=== PATIENT | female | born 1955 | race Hispanic/Latino ===

== ENCOUNTER 2019-04-26 17:40 | Emergency (ER) | payer BC, MEDICARE ==
[~2019-04-26] VITALS: Ht 160 cm; Wt 99.8 kg
--- OUTSIDE RECORDS SUMMARY | 2019-04-26 17:42 | XMS REPORT ---
Author Author [facility] Address Unknown Phone Unavailable Care Team Providers Care Pediatric Audiologist Name Role Phone Unavailable Unavailable Payers Payer Name Policy Type Policy Number Effective Date Expiration Date Problems This patient has no known problems. Allergies, Adverse Reactions, Alerts Allergy Name Allergy Type Status Severity Reaction(s) Onset Date Inactive Date Treating Clinician Comments lidocaine DA Active MO 2017-01-13 00:00:00 Medications This patient has no known medications.
== END 2019-04-26 21:00 | disposition left against medical advice (07) ==
LOC: ER 17:40
DX: M25.562 Pain in left knee (principal)

== ENCOUNTER → 2020-04-20 | Outpatient (CLI) | payer OTHER ==
[~2020-04-20] MED LIST: GADOBENATE DIMEGLUMINE 0 ML IV ONE; IOPAMIDOL 300 MG/ML 15ML VIAL IT ONE; LIDOCAINE HCL 1% LOCAL INJ 20 ML VIAL ONE
--- NOTE | 2020-04-20 13:07 | Diagnostic Imaging Report ---
Left shoulder arthrogram. History: Left shoulder pain after fall. No MRI requested due to presence of pacemaker. Screener Operator: Dr. Quick. Contrast: 10 mL of Isovue-300. Medication: 6 cc of 1% Lidocaine without epinephrine. EBL: < 1 ml. Specimen: None. Fluoro time: 0.3 min. Dose: 2.2 mGy (CHRISTY) Technique: After informed consent was obtained, the patient's left shoulder was prepped and draped in a sterile fashion. The skin was anesthetized with lidocaine. Using fluoroscopic guidance, a 22-gauge spinal needle was advanced into the left glenohumeral joint space. The contrast mixture was injected. The needle was removed and images were obtained in internal and external rotation. The patient tolerated procedure well without evidence of complication. Findings: Contrast fills the glenohumeral joint, with extravasation into the subacromial and subdeltoid bursa. IMPRESSION: Successful left shoulder arthrogram demonstrating full-thickness rotator cuff tear. Signed by: Momo Quick on 04/20/2020 1:04 PM
== END ==
LOC: DX 11:16
PROVIDERS: ATTEND Specialist
DX: M75.102 Unspecified rotator cuff tear or rupture of left shoulder, not specified as traumatic (principal)
CPT/HCPCS: 23350; 77002; J2001; Q9967

== ENCOUNTER 2020-04-21 09:45 | Outpatient (RCR) | payer OTHER | END 2020-04-22 | LOC: PT 09:45 | PROVIDERS: ATTEND Specialist | DX: M17.12 Unilateral primary osteoarthritis, left knee (principal); M25.561 Pain in right knee; M25.562 Pain in left knee; S83.281D Other tear of lateral meniscus, current injury, right knee, subsequent encounter ==

== ENCOUNTER 2020-05-19 10:00 | Outpatient (RCR) | payer OTHER | END 2020-05-22 | LOC: PT 10:00 | PROVIDERS: ATTEND Specialist | DX: M17.12 Unilateral primary osteoarthritis, left knee (principal); M25.562 Pain in left knee; M25.561 Pain in right knee | CPT/HCPCS: 97139 ==

== ENCOUNTER 2020-05-26 10:00 | Outpatient (RCR) | payer OTHER ==
[2020-06-05] MEDS ORDERED: LEXAPRO20 MG PO (14:24)
[2020-06-05] MEDS ORDERED: METFORMIN HCL500 M2 PO (14:24)
[2020-06-05] MEDS ORDERED: SIMVASTATIN40 MG PO (14:24)
[2020-06-05] MEDS ORDERED: LEVOTHYROXINE50 MCG PO (14:24)
[2020-06-05] MEDS ORDERED: ELIQUIS5 MG PO (14:25)
[2020-06-05] MEDS ORDERED: OMEPRAZOLE20 M2 PO (14:25)
[2020-06-05] MEDS ORDERED: DIGOXIN125 MCG PO (14:25)
[2020-06-05] MEDS ORDERED: SPIRONOLACTONE25 MG PO (14:25)
[2020-06-05] MEDS ORDERED: LYRICA75 MG PO (14:26)
[2020-06-05] MEDS ORDERED: TYLENOL EXTRA500 MG PO (14:26)
[2020-06-05] MEDS ORDERED: CARVEDILOL3.125 MG PO (14:26)
== END 2020-06-22 ==
LOC: PT 10:00
PROVIDERS: ATTEND Specialist
DX: M17.12 Unilateral primary osteoarthritis, left knee (principal); M25.561 Pain in right knee; M25.661 Stiffness of right knee, not elsewhere classified

== ENCOUNTER → 2020-06-07 | Day surgery (SDC) | payer OTHER ==
[2020-06-05 13:33] LABS: BASOPHILS % 0.5 % (0.0-1.0); EOSINOPHILS # (AUTO) 0.1 (0.0-0.4); EOSINOPHILS % 1.4 % (0.0-6.0); HEMATOCRIT 39.4 % (34.2-44.1); HEMOGLOBIN 12.8 g/dL (12.0-16.0); LYMPHOCYTES # (AUTO) 1.9 (1.0-3.2); LYMPHOCYTES % 24.5 % (18.0-39.1); MEAN CORPUSCULAR HGB CONC 32.5 g/dL (31-35); MEAN CORPUSCULAR VOLUME 92.3 fL (81-99); MONOCYTES # (AUTO) 0.5 (0.2-0.8); MONOCYTES % 6.4 % (4.4-11.3); NEUTROPHILS # (AUTO) 5.3 (2.1-6.9); NEUTROPHILS % 66.8 % (38.7-80.0); PLATELET COUNT 233 x10e3/uL (140-360); RED BLOOD COUNT 4.27 x10e6/uL (3.6-5.1); RED CELL DISTRIBUTION WIDTH 13.2 % (11.7-14.4)
[2020-06-05 13:47] LABS: ANION GAP 15.4 mmol/L (8-16); CALCIUM 9.1 mg/dL (8.4-10.2); CREATININE, SERUM 0.98 mg/dL (0.57-1.11); POTASSIUM 4.4 mmol/L (3.5-5.1)
[~2020-06-07] MED LIST changes: +BUPIVACAINE 0.5%/EPI 30 ML SDV INJ ONE; +CARVEDILOL3.125 MG PO; +CEFAZOLIN SOD 1 GM/NS 50ML 100 ML IV ONE; +DEXAMETHASONE SOD PHOS INJ 4 MG/ML VIAL ONE; +DIGOXIN125 MCG PO; +ELIQUIS5 MG PO; +FENTANYL CITRATE/PF 100MCG/2 ML INJ ONE; -GADOBENATE DIMEGLUMINE 0 ML IV ONE; +HYDROMORPHONE 1MG/1ML INJ ONE; -IOPAMIDOL 300 MG/ML 15ML VIAL IT ONE; +LABETALOL HCL 5 MG/ML 20ML VIAL ONE; +LEVOTHYROXINE50 MCG PO; +LEXAPRO20 MG PO; -LIDOCAINE HCL 1% LOCAL INJ 20 ML VIAL ONE; +LYRICA75 MG PO; +METFORMIN HCL500 M2 PO; +OMEPRAZOLE20 M2 PO; +ONDANSETRON HCL INJ 2MG/ML 2ML 2 MG/ML VIAL ONE; +PROPOFOL IV EMULSION 10 MG/ML 20 ML VIAL ONE; +SEVOFLURANE INHAL SOLN 250 ML PEN BTL ONE; +SIMVASTATIN40 MG PO; +SPIRONOLACTONE25 MG PO; +TYLENOL EXTRA500 MG PO
[2020-06-07 10:05] VITALS: BP 133/84
== END | disposition home or self-care (01) ==
LOC: OR 05:31
PROVIDERS: ATTEND Specialist
DX: S83.222A Peripheral tear of medial meniscus, current injury, left knee, initial encounter (principal); S83.262A Peripheral tear of lateral meniscus, current injury, left knee, initial encounter; M17.12 Unilateral primary osteoarthritis, left knee; S83.512A Sprain of anterior cruciate ligament of left knee, initial encounter; M67.52 Plica syndrome, left knee; M22.42 Chondromalacia patellae, left knee; S46.092A Other injury of muscle(s) and tendon(s) of the rotator cuff of left shoulder, initial encounter; E11.9 Type 2 diabetes mellitus without complications; I49.5 Sick sinus syndrome; I11.0 Hypertensive heart disease with heart failure; I50.9 Heart failure, unspecified; K21.9 Gastro-esophageal reflux disease without esophagitis; N39.0 Urinary tract infection, site not specified; E66.01 Morbid (severe) obesity due to excess calories; E05.90 Thyrotoxicosis, unspecified without thyrotoxic crisis or storm; X58.XXXA Exposure to other specified factors, initial encounter; Z01.810 Encounter for preprocedural cardiovascular examination; Z01.812 Encounter for preprocedural laboratory examination; Z01.818 Encounter for other preprocedural examination; Z20.828 Contact with and (suspected) exposure to other viral communicable diseases; Z79.02 Long term (current) use of antithrombotics/antiplatelets; Z79.84 Long term (current) use of oral hypoglycemic drugs; Z68.43 Body mass index [BMI] 50.0-59.9, adult; Z95.0 Presence of cardiac pacemaker
CPT/HCPCS: 36415; 71046; 80048; 82948; 85025; 93005; J0690; J1100; J1170; J2405; J3010; U0002

== ENCOUNTER 2020-07-21 10:50 | Outpatient (RCR) | payer MEDICARE, OTHER ==
[~2020-07-21 10:50] MED LIST changes: -BUPIVACAINE 0.5%/EPI 30 ML SDV INJ ONE; -CEFAZOLIN SOD 1 GM/NS 50ML 100 ML IV ONE; -DEXAMETHASONE SOD PHOS INJ 4 MG/ML VIAL ONE; -FENTANYL CITRATE/PF 100MCG/2 ML INJ ONE; -HYDROMORPHONE 1MG/1ML INJ ONE; -LABETALOL HCL 5 MG/ML 20ML VIAL ONE; -ONDANSETRON HCL INJ 2MG/ML 2ML 2 MG/ML VIAL ONE; -PROPOFOL IV EMULSION 10 MG/ML 20 ML VIAL ONE; -SEVOFLURANE INHAL SOLN 250 ML PEN BTL ONE
== END 2020-07-23 ==
LOC: PT 10:50
PROVIDERS: ATTEND Specialist
DX: M25.562 Pain in left knee (principal)

== ENCOUNTER 2020-08-18 13:00 | Outpatient (RCR) | payer OTHER | END 2020-08-20 | LOC: PT 13:00 | PROVIDERS: ATTEND Specialist | DX: M25.562 Pain in left knee (principal) ==

== ENCOUNTER 2020-08-25 13:00 | Outpatient (RCR) | payer OTHER | END 2020-09-20 | LOC: PT 13:00 | PROVIDERS: ATTEND Specialist | DX: M25.562 Pain in left knee (principal) ==

== ENCOUNTER 2021-12-06 15:12 | Emergency (ER) | payer MEDICARE, OTHER ==
[~2021-12-06] VITALS: Ht 160 cm; Wt 99.8 kg
[2021-12-06] MEDS ORDERED: KETOROLAC TROMETHAMINE 30 MG/ML VIAL IV STA (17:33)
[2021-12-06] MEDS ORDERED: KETOROLAC TROMETHAMINE 30 MG/ML VIAL ONE (17:43)
[2021-12-06] MEDS ORDERED: MELOXICAM7.5 MG PO (17:46)
[2021-12-06 18:06] VITALS: BP 122/92
== END 2021-12-06 18:10 | disposition home or self-care (01) ==
LOC: ER 17:02
DX: M79.642 Pain in left hand (principal); M79.641 Pain in right hand; M25.562 Pain in left knee; M25.561 Pain in right knee; M06.9 Rheumatoid arthritis, unspecified; I10 Essential (primary) hypertension; E11.9 Type 2 diabetes mellitus without complications; I48.91 Unspecified atrial fibrillation; E78.5 Hyperlipidemia, unspecified; E03.9 Hypothyroidism, unspecified; K21.9 Gastro-esophageal reflux disease without esophagitis; F32.A Depression, unspecified
CPT/HCPCS: 99283; J1885

== ENCOUNTER 2022-01-18 11:00 | Outpatient (RCR) | payer OTHER ==
[~2022-01-18 11:00] MED LIST changes: +MELOXICAM7.5 MG PO
== END 2022-01-20 ==
LOC: PT 11:00
PROVIDERS: ATTEND Specialist
DX: M17.12 Unilateral primary osteoarthritis, left knee (principal); E66.01 Morbid (severe) obesity due to excess calories

== ENCOUNTER 2022-02-11 10:55 | Outpatient (RCR) | payer OTHER | END 2022-02-20 | LOC: PT 10:55 | PROVIDERS: ATTEND Specialist | DX: M17.12 Unilateral primary osteoarthritis, left knee (principal); E66.01 Morbid (severe) obesity due to excess calories ==

== ENCOUNTER 2022-03-08 13:41 | Outpatient (RCR) | payer OTHER | END 2022-03-22 | LOC: PT 13:41 | PROVIDERS: ATTEND Specialist | DX: M17.12 Unilateral primary osteoarthritis, left knee (principal); S83.412D Sprain of medial collateral ligament of left knee, subsequent encounter; R26.2 Difficulty in walking, not elsewhere classified ==

== ENCOUNTER → 2024-02-19 | Day surgery (SDC) | payer OTHER ==
[2024-02-17 10:26] LABS: BASOPHILS % 0.4 % (0.0-1.0); EOSINOPHILS # (AUTO) 0.1 (0.0-0.4); EOSINOPHILS % 2.7 % (0.0-6.0); HEMATOCRIT 38.1 % (34.2-44.1); HEMOGLOBIN 11.7 g/dL (12.0-16.0); LYMPHOCYTES # (AUTO) 1.4 (1.0-3.2); LYMPHOCYTES % 26.2 % (18.0-39.1); MEAN CORPUSCULAR HEMOGLOBIN 29.6 pg (28-32); MEAN CORPUSCULAR HGB CONC 30.7 g/dL (31-35); MEAN CORPUSCULAR VOLUME 96.5 fL (81-99); MONOCYTES # (AUTO) 0.4 (0.2-0.8); MONOCYTES % 8.2 % (4.4-11.3); NEUTROPHILS # (AUTO) 3.3 (2.1-6.9); NEUTROPHILS % 62.3 % (38.7-80.0); PLATELET COUNT 227 x10e3/uL (140-360); RED BLOOD COUNT 3.95 x10e6/uL (3.6-5.1); RED CELL DISTRIBUTION WIDTH 16.9 % (11.7-14.4); WHITE BLOOD COUNT 5.22 x10e3/uL (4.8-10.8)
[~2024-02-19] MED LIST changes: +ACETAMINOPHEN325 M1 PO; +FOLIC ACID0.4 MG PO; +FUROSEMIDE40 MG PO; +LIDOCAINE HCL 2% LOCAL INJ 5 ML SDV VIAL INJ ONE; +METHOTREXATE2.5 MG PO; +METOPROLOL SUCC25 MG PO; +MOUNJARO7.5 MG/0.5 SC; +NEXIUM40 MG PO; +PROPOFOL IV EMULSION 50 ML IV ONE; +SERTRALINE HCL50 MG PO
[2024-02-19] MEDS: LACTATED RINGER'S 1,000 ML ONE (08:41)
[2024-02-19 11:45] VITALS: BP 132/89; PULSE 78; RESP 16; TEMP 97.3; O2SAT 96
== END | disposition home or self-care (01) ==
LOC: OR 07:03
PROVIDERS: ATTEND Internal Medicine Gastroenterology
DX: R13.10 Dysphagia, unspecified (principal); Z86.010 Personal history of colon polyps; K29.50 Unspecified chronic gastritis without bleeding; K21.9 Gastro-esophageal reflux disease without esophagitis; K44.9 Diaphragmatic hernia without obstruction or gangrene; K57.30 Diverticulosis of large intestine without perforation or abscess without bleeding; K64.8 Other hemorrhoids; Z71.3 Dietary counseling and surveillance; E11.9 Type 2 diabetes mellitus without complications; Z78.9 Other specified health status; I10 Essential (primary) hypertension; G89.29 Other chronic pain; E03.9 Hypothyroidism, unspecified; E78.5 Hyperlipidemia, unspecified; F41.9 Anxiety disorder, unspecified; F32.A Depression, unspecified; Z01.810 Encounter for preprocedural cardiovascular examination; Z01.812 Encounter for preprocedural laboratory examination; Z79.02 Long term (current) use of antithrombotics/antiplatelets; Z79.85 Long-term (current) use of injectable non-insulin antidiabetic drugs; Z79.899 Other long term (current) drug therapy; Z68.39 Body mass index [BMI] 39.0-39.9, adult; Z95.0 Presence of cardiac pacemaker
CPT/HCPCS: 36415; 43239; 43249; 45378; 85025; 88305; 88342; 93005; J2001; J2704; J7121; 43233